=== PATIENT | female | born 1975 | race Caucasian/White ===

== ENCOUNTER 2019-07-20 00:17 | Inpatient (IN) | payer OTHER ==
[~2019-07-20] VITALS: Ht 177.8 cm; Wt 52.2 kg
--- NOTE | 2019-07-20 00:17 | NUR ---
43 Y/O FEMALE BIB AMBULANCE PRESENTS TO ED WITH C/O DIFFUSE ABD PAIN THROUGHOUT RADIATING TO LOWER BACK X2 DAYS. LAST BOWEL MOVEMENT 3-4 DAYS AGO. PT WAS DISCHARGE FROM [facility] AND ESCORTED OFF PREMESIS. PT THEN CALLED 911 AND CAME TO [facility] FOR SAME COMPLAINT. ABD SOFT, FLAT AND STATES MILD TENDERNESS. UNABLE TO GIVE URINE AT THIS TIME. BOWEL SOUNDS PRESENT X4. PT AMBULATORY FROM [facility] TO BED. SHE AMBULATED WITH STEADY GAIT. POSTURE IS STRONG AND UPRIGHT THOUGH SHE STATES 8/10 PAIN. AFEBRILE WITH VSS. LESIONS TO BILAT FOREARMS. REDNESS AND EDEMA TO LEFT FOREARM. PT STATES CHRONIC CELLULITIS. HX OF METH USE. POSITIONED IN BED FOR COMFOR TWITH HOB ELEVATED 30 DEGREES. X2 SIDE RAILS UP. PLACED ON MONITOR. PUT IN GOWN AND GIVEN BLANKETS. ER AWARE. CONTINUE TO MONITOR.
--- NOTE | 2019-07-20 00:17 | NUR ---
PT BIBA BLS. TAKEN TO BED 9
[2019-07-20 00:20] VITALS: BP 129/85
--- NOTE | 2019-07-20 00:32 | NUR ---
Dr. Hammond examining patient.
[2019-07-20] MEDS ORDERED: NACL 0.9% 500 ML IV SCH (00:37)
[2019-07-20 01:15] LABS: HEMATOCRIT 32.6 % (36-48); HEMOGLOBIN 10.5 g/dL (12.0-16.0); MEAN CORPUSCULAR HEMOGLOBIN 27 pg (27-31); MEAN CORPUSCULAR HGB CONC 32 g/dL (33-37); PLATELET COUNT (AUTO) 210 K/uL (140-450); RED BLOOD CELL COUNT(AUTO) 3.97 MIL/uL (4.20-5.40); RED CELL DISTRIBUTION WIDTH 15.1 % (11.6-13.7)
[2019-07-20] MEDS ORDERED: VANCOMYCIN 1,000 MG in DEXTROSE 5% 250 ML IV ONE (01:15)
--- NOTE | 2019-07-20 01:15 | NUR ---
PATIENT ALERT AND ORIENTED, PATIENT IS UNABLE TO PROVIDE URINE SAMPLE. DR FRANCO NOTIFIED.
[2019-07-20 01:16] LABS: WHITE BLOOD COUNT (AUTO) 38.7 K/uL (4.8-10.8)
[2019-07-20 01:18] LABS: LYMPHOCYTES % (MANUAL) 3 % (20-46); MONOCYTES % (MANUAL) 4 % (5-12)
[2019-07-20 01:19] LABS: ALBUMIN 1.5 g/dL (3.4-5.0); ANION GAP 11.9 (8-16); CARBON DIOXIDE 24.6 mmol/L (21-32); POTASSIUM 5.5 mmol/L (3.5-5.1); TOTAL BILIRUBIN 0.4 mg/dL (0.0-1.0)
[2019-07-20] MEDS ORDERED: PANTOPRAZOLE 40 MG INJ VIAL IVP ONE (01:20)
[2019-07-20 01:21] LABS: CREATININE 4.7 mg/dL (0.6-1.3)
[2019-07-20] MEDS ORDERED: SODIUM ZIRCONIUM CYCLOSILICATE 10 GM POWD.PACK PO ONE (01:30)
[2019-07-20] MEDS ORDERED: VANCOMYCIN 1,000 MG VIAL ONE (01:30)
[2019-07-20] MEDS ORDERED: DEXTROSE 50% 50 ML SYR IVP ONE (01:30)
[2019-07-20] MEDS ORDERED: INSULIN REGULAR, HUMAN 100 UNIT/ML VIAL SUBQ ONE (01:30)
--- NOTE | 2019-07-20 02:31 | NUR ---
TAKEN TO CT VIA WC.
[2019-07-20] MEDS ORDERED: ONDANSETRON 4 MG/2 ML VIAL IVP ONE (03:10)
--- NOTE | 2019-07-20 03:30 | NUR ---
PATIENT IS ALERT AND ORIENTED, STILL UNABLE TO PROVIDE URINE AND DR FRANCO IS AWARE. BREATHING EVEN AND UNLABORED, PATIENT IS CALM AND COOPERATIVE.
[2019-07-20] MEDS ORDERED: VANCOMYCIN PER PHARMACY MC PRN (04:15)
[2019-07-20] MEDS ORDERED: ONDANSETRON 4 MG/2 ML VIAL IVP PRN (04:15)
[2019-07-20] MEDS ORDERED: ACETAMINOPHEN 325 MG TAB PO PRN (04:15)
--- NOTE | 2019-07-20 05:00 | NUR ---
LEFT FOREARM ULCERATION 1.5CM X 0.5 CM X 0.3 CM DUE TO IV DRUG USE, PHOTOS TAKEN. WOUND COVERED WITH NONADHERENT DRESSING FROM PREVIOUS HOSPITAL VISIT.
[2019-07-20] MEDS ORDERED: GABA400C PO (05:22)
[2019-07-20] MEDS ORDERED: ALBU0.0912 INH (05:22)
[2019-07-20] MEDS ORDERED: ALPR1TAB2 PO (05:24)
[2019-07-20] MEDS ORDERED: DULO20EC PO (05:24)
[2019-07-20 05:30] VITALS: BP 108/72
--- NOTE | 2019-07-20 05:30 | NUR ---
Patient will be admitted to care of DR STEPHENS. Admited to MED SURG. Will go to room 120A. Belongings list completed. Report to KHADRA PITT.
--- NOTE | 2019-07-20 05:30 | NUR ---
RECEIVED BEDSIDE REPORT FROM ED RN ROHINI, FOR PT'S CONTINUITY OF CARE. PT IS AAOX4, ABLE TO AMBULATE, ON ROOM AIR, HAS RIGHT EJ 20G SALINE LOCK, DENIES ANY PAIN AT THIS TIME. VS CHECKED AND CHARTED. PT IN STABLE CONDITION. SAFETY AND SEIZURE PRECAUTIONS IN PLACE, CALL LIGHT IS WITHIN REACH, PT TEACHING GIVEN REGARDING DIET, AND DIAGNOSIS. PT VERBALIZED UNDERSTANDING. WILL ENDORSE TO AM SHIFT RN FOR PT'S CONTINUITY OF CARE.
[2019-07-20] MEDS: NACL 0.9% 1,000 ML IV SCH ×2 (05:40→18:30)
--- NOTE | 2019-07-20 06:00 | NUR ---
PT INQUIRED IF THERE ARE ANY MEDICATION ORDERED FOR PAIN. INFORMED PT THAT THERE IS ACETAMINOPHEN FOR MILD PAIN. PT REFUSED MED.
[2019-07-20] MEDS ORDERED: PIPERACILLIN/TAZOBACTAM 2.25 GM VIAL IV ONE (06:04)
--- NOTE | 2019-07-20 06:20 | NUR ---
ADMINISTERED SCHEDULED IVF AND IV ABX ORDERED. PT TEACHING GIVEN.
[2019-07-20] MEDS: PIPERACILLIN/TAZOBACTAM 2.25 GM in DEXTROSE 5% 50 ML IV SCH ×3 (06:21→20:30)
--- NOTE | 2019-07-20 07:15 | NUR ---
RECEIVED BEDSIDE REPORT FROM SWEETIE GAVIRIA. PATIENT IS IN BED, ASLEEP ABLE TO WAKE. RESPIRATION EVEN AND UNLABORED. NO S/S OF DISTRESS NOTED. IV INTACT AND PATENT TO RIGHT EJ WITH IVF NS 70ML/HR. TOLERATING WELL. DRESSING INTACT TO LEFT FOREARM. LEFT LEG RASH NOTED COVERED WITH DRY GAUZE WRAP. PT REFUSED TO REMOVE GAUZE DRESSING FOR ASSESSMENT. EDUCATED PATIENT. WILL CONT TO MONITOR. CALL LIGHT WITHIN REACH.
[2019-07-20 08:00] VITALS: BP 114/59
--- NOTE | 2019-07-20 09:30 | NUR ---
PER ZOOGLER LUCINA PATIENT REFUSED BLOOD DRAW. EDUCATED PATIENT ABOUT THE IMPORTANCE OF BLOOD DRAW.
--- NOTE | 2019-07-20 10:11 | NUR ---
PT REFUSED SKIN ASSESSMENT. EDUCATED ABOUT THE IMPORTANCE OF SKIN ASSESSMENT. WILL CONTINUE TO MONITOR. NO S/S OF DISTRESS NOTED. CALL LIGHT WITHIN REACH.
--- NOTE | 2019-07-20 11:59 | NUR ---
PATIENT IS ASLEEP, ABLE TO WAKE. DENIES ANY PAIN OR DISCOMFORT. RESPIRATION EVEN AND UNLABORED. CALL LIGHT WITHIN REACH. BED IN LOW POSITION.
--- NOTE | 2019-07-20 14:30 | NUR ---
ATTEMPTED TO ASSESS PATIENT'S SKIN. PT STILL REFUSED TO ASSESS LEFT LEG. OBSERVED EDEMA TO LEFT INNER ANKLE, WITH SLIGHT REDNESS. PATIENT STATED "IT'S BEEN SWOLLEN THERE, SO I DON'T LIKE TO PUT SOCKS ON THAT FOOT." PATIENT ABLE TO AMBULATE TO THE RESTROOM WITH STANDBY ASSIST. WILL NOTIFY DR. STEPHENS OF THE ASSESSMENT.
[2019-07-20 16:00] VITALS: BP 119/61
--- NOTE | 2019-07-20 16:00 | NUR ---
DR. STEPHENS ASSESSED PATIENT'S LEFT LEG AND LEFT ANKLE EDEMA. PER HE WILL ORDER ANTIBIOTIC.
[2019-07-20] MEDS: HYDROmorphone 1 MG/ML AMP IVP PRN ×2 (16:57→22:44)
--- NOTE | 2019-07-20 18:00 | NUR ---
PT IS SITTING UP IN BED, EATING DINNER. NO S/S OF DISTRESS NOTED.
--- NOTE | 2019-07-20 19:00 | NUR ---
PATIENT IN STABLE CONDITION. WILL ENDORSE TO NIGHT NURSE.
--- NOTE | 2019-07-20 19:25 | NUR ---
RECEIVED REPORT FORM JEWEL RN DAYSHIFT NURSE AT BEDSIDE FOR CONTINUITY OF CARE, PT IN STABLE CONDITION. PT SITTING UP IN BED NO C/O VOICED IV SITE INTACT AND RUNNING NORMAL SALINE AT 70MLS/HR. ALL FALLS PRECAUTION IN PLACE AND CALL OCHOA IN REACH.
[2019-07-20] MEDS: oxyCODONE/APAP 5/325 MG 1 TAB TAB PO PRN (20:24)
--- NOTE | 2019-07-20 21:00 | NUR ---
PT IN BED ALL FALLS AND SEIZURE PRECAUTIONS IN PLACE. V/S FOLLOWS: T 97.6 P 64 R 18/P 121/72 02 100% ON ROOM AIR. PT GIVEN ORDERED ZOSYN. R EJ IV SITE INTACT AND FLUSHED PT HAS NORMAL SALINE RUNNING AT 70MLS/HR.PT GIVEN PERCOCET FOR MODERATE PAIN IN ABDOMEN AND BACK. ALL OTHER REQUESTED NEEDS ATTENDED. BY STAFF.
--- NOTE | 2019-07-20 23:45 | NUR ---
PT IN BED, ALL FALLS AND SEIZURE PRECAUTIONS IN PLACE. PT HAD C/O OF SEVERE 8/10 ABD AND BACK PAIN, GIVEN IVP/PRN DILAUDID. V/S FOLLOWS: T 97.4 P 63 R 18 B/P 120/68 02 99% ON ROOM AIR. DRESSINGS ON ARM AND LEG CLEAN AND INTACT. ALL REQUESTED NEEDS ATTENDED AND CALL OCHOA IN REACH.
[2019-07-21] VITALS: BP 121/72
[2019-07-21] MEDS: HYDROmorphone 1 MG/ML AMP IVP PRN ×4 (03:32→20:04)
--- NOTE | 2019-07-21 03:35 | NUR ---
PT IN BED WITH C/O SEVERE ABDOMINAL AND BACK PAIN. SHE WAS GIVEN IVP/PRN DILAUDID. ALL REQUESTED NEEDS ATTENDED , FALLS AND SEIZURE PROTOCOLS IN PLACE.
[2019-07-21] MEDS: oxyCODONE/APAP 5/325 MG 1 TAB TAB PO PRN (06:56)
[2019-07-21] MEDS: PIPERACILLIN/TAZOBACTAM 2.25 GM in DEXTROSE 5% 50 ML IV SCH ×3 (07:00→20:10)
--- NOTE | 2019-07-21 07:07 | NUR ---
RECEIVED BEDSIDE REPORT FROM ANALYST NURSE. PATIENT ASLEEP IN BED UPON ARRIVAL. RESPONSIVE TO VERBAL AND TACTILE STIMULI. ABLE TO MAKE NEEDS KNOWN. NO COMPLAINTS OR CONCERNS AT THIS TIME. SKIN WARM AND DRY TO TOUCH. CELLULITIS ON LEFT FOREARM IS COVERED WITH DRESSING. DRESSING IS CLEAN, DRY, AND INTACT. IV SITE IS ON R EJ WITH A 20G. IV SITE IS CLEAN, DRY, AND INTACT WITH NO LEAKING OR INFILTRATION. RESPIRATIONS EVEN AND UNLABORED WITH NO SOB OR RESPIRATORY DISTRESS. PATIENT IS STABLE. SAFETY MEASURES: HOB ELEVATED, SEIZURE PRECAUTIONS IN PLACE, BED ALARM ACTIVATED, AND CALL LIGHT WITHIN REACH. WILL CONTINUE TO MONITOR.
[2019-07-21 08:00] VITALS: BP 143/96
--- NOTE | 2019-07-21 08:41 | NUR ---
PATIENT COMPLAINED SHE HAS 9/10 PAIN ON HER ABDOMEN, NON RADIANT, FEELS STABBING AND SHARP. REPOSITIONED PATIENT AND PAIN DOES NOT GO AWAY. MEDICATED WITH PRN PAIN MED DILAUDID VIA IVP, MED ED PROVIDED AND PATIENT VERBALIZED UNDERSTANDING. PATIENT AWAKE AND RESTING ON BED AT THIS TIME. EXPLAINED TO PATIENT URINE SAMPLE IS NEEDED AND PROVIDE SPECIMEN SAMPLE CUP AND INSTRUCTED PATIENT TO USE IT WHEN SHE HAS URINE, PATIENT VERBALIZED UNDERSTANDING. SPECIMEN COLLECT SIGN POSTED ON DOOR. NO SIGNS OF DISTRESS NOTED. SAFETY MEASURES IN PLACE. FALL RISK PROTOCOL AND SEIZURE PROTOCOL IN PLACE. BED IN LOW POSITION AND CALL LIGHT WITHIN REACH. INSTRUCTED PATIENT TO USE THE CALL LIGHT FOR ANY ASSISTANCE AND PATIENT WAS AWARE.
--- NOTE | 2019-07-21 09:01 | NUR ---
PATIENT HAS BEEN SCREENED AND CATEGORIZED HIGH NUTRITION RISK. PATIENT WILL BE SEEN WITHIN 1-2 DAYS OF ADMISSION. 07/21/[address]
--- NOTE | 2019-07-21 09:50 | NUR ---
PATIENT IS RESTING ON BED AT THIS TIME. NO SIGNS OF DISTRESS NOTED. SAFETY MEASURES IN PLACE.
--- NOTE | 2019-07-21 10:11 | NUR ---
DR GUERRERO IS ASSESSING AND TALKING TO PATIENT AT BEDSIDE. NO SIGNS OF DISTRESS NOTED.
--- NOTE | 2019-07-21 11:33 | NUR ---
WOUND CARE CONSULT NOT DONE. PT. REFUSES, RISKS AND BENEFITS EXPLAINED. PT DOES NOT WANT THE DRESSING TO BE REMOVED. Addendum: 07/21/19 at 1136 by Nicholas Stringer RN (Grace) PRIMARY RN NOTIFIED.
--- NOTE | 2019-07-21 12:10 | NUR ---
DR CAMPOS IS ASSESSING AND TALKING TO PATIENT AT BEDSIDE. NO SIGNS OF DISTRESS NOTED. SAFETY MEASURES IN PLACE.
[2019-07-21] MEDS ORDERED: VANCOMYCIN PER PHARMACY MC PRN (12:15)
[2019-07-21] MEDS: NACL 0.9% 1,000 ML IV SCH ×2 (13:20→23:25)
--- NOTE | 2019-07-21 13:20 | NUR ---
ADMINISTERED MED PER MD ORDER, PATIENT TOLERATED WELL. MED EDU PROVIDED TO PATIENT AND PATIENT VERBALIZED UNDERSTANDING. PATIENT IS RESTING ON BED AT THIS TIME. NO SIGNS OF DISTRESS NOTED. PATIENT REFUSED WOUND ASSESSMENT AND WOUND CARE. STATED "NO, I DON'T WANT TO DO IT. IT'S OK. I FEEL TIRED." WOUND CARE EDUCATION PROVIDED AND PATIENT INSISTED NOT WANTING IT. SAFETY MEASURES IN PLACE. FALL RISK PROTOCOL AND SEIZURE PROTOCOL IN PLACE. BED IN LOW POSITION AND CALL LIGHT WITHIN REACH.
--- NOTE | 2019-07-21 14:49 | NUR ---
PATIENT CALLED AND COMPLAINED OF PAIN. ADMINISTERED PRN PAIN MEDICATION PRESCRIBED PER MD ORDER. EDUCATION REGIMEN PERFORMED. PT ABLE TO VERBALIZE UNDERSTANDING AND TEACH BACK. PATIENT TOLERATED WELL.
--- NOTE | 2019-07-21 14:51 | NUR ---
DC PLANNIN YRS OLD FEMALE PT ADMITTED FROM HOME WITH A DX OF CELLULITIS AND RENAL FAILURE. PT HAS A HX OF DRUG ABUSE , ASTHMA AND SEIZURE. PT IS HOMELESS . BLOOD AND URINE CULTURE SENT TO LAB , ID AND NEPHRO CONSULT AND SURGICAL CONSULT FOR POSS DEBRIDEMENT . ADMINISTER VANCO AND ZOSYN IV , REFER TO DIRECTOR LOAN FOR HOMELESSNESS .DC PLAN FOR RESIDENTIAL OR FAMILY FOR A SAFE DISCHARGE. CM TO FOLLOW.
--- NOTE | 2019-07-21 14:53 | NUR ---
ABLE TO CONVINCE PATIENT TO DO WOUND CARE. ASSESSED L FA AND L LOWER LEG. WOUND PICTURED TAKEN. CLEANSED BOTH SITES WITH NS AND PADDED DRY. APPLIED ADAPTIC DRESSINGS. COVERED LFA WITH DRESSING AND SECURED LOW LEFT LEG WITH KERLIX. PATIENT TOLERATED WELL. WOUND EDUCATION PROVIDED TO PATIENT AND PATIENT VERBALIZED UNDERSTANDING. PATIENT AWAKE AND LOOKING AT HER PHONE. NO SIGNS OF DISTRESS NOTED. SAFETY MEASURES IN PLACE. BED IN LOW POSITION AND CALL LIGHT WITHIN REACH. INSTRUCTED PATIENT TO USE THE CALL LIGHT FOR ANY ASSISTANCE AND PATIENT WAS AWARE.
--- NOTE | 2019-07-21 15:17 | NUR ---
CALLED LAB AND SPOKE WITH JESSIE. INFORMED JESSIE THAT LAB IS NOT YET DRAM FOR DANY AND VITOR CHAPIN. PER JESSIE, SHE WILL LET THE MILLINERY TEACHER KNOW AND WILL DRAW SHORTLY.
--- NOTE | 2019-07-21 15:19 | NUR ---
[employer] Note: Basic Screen: Yes High Risk DC Screen Yes Name: N/A Home Tel: N/A Relationship: N/A Pre-Admission Living Arrangements: Other Other: HOMELESS Prior ADL Independent Current Home Health Name/Tel: N/A Current DME/02 Name/Tel: N/A Current Hospice Name/Tel: N/A Current Dialysis Name/Tel: N/A Healthcare Decision Maker: Patient Advance Directive No - REFUSED Physician Orders for Life Sustaining Treatment Form No Patient/Family Have Educational Needs No Information Taught: Advance Directive Person Taught: Patient Teaching Tools: Community Resources Verbal Factors Affecting Learning: None Participation Level: Active Evaluation: Verbalizes Understanding Needs Additional Education: No Discipline: Case Mgt/Social Svcs Tentative Discharge Plan/Destination: No Needs Identified Will require assistance post discharge: No Referred to Microsoft Windows Engineer: No Tentative Discharge Plan Summary: Patient is a 43-year-old female admitted for abdominal pain and left leg pain. Patient has PMHX of asthma and seizures. Patient is homeless. NANCI verified demographics with patient. Patient stated that she has been homeless for 1 year. SW provided homeless resources. Patient stated she would utilize phone in room to contact resources. Patient reports history of mental health with diagnoses of: manic depressive disorder, severe anxiety, and PTSD. Patient stated she has a psychiatrist at [facility]. Patient refused mental health resources when asked if she was interested in therapy. Patient reports substance abuse history of tobacco (pack a day) and history of heroine abuse. Patient's tentative plan after discharge is to find a mcc and coordinate living arrangements through resources. NANCI informed nurse to provide patient weather appropriate clothing and a meal to go. No further needs identified. Signature: DEZ Spencer Date: Jul 21, 2019 Time: 15:18
--- NOTE | 2019-07-21 15:22 | NUR ---
PATIENT RESTING IN BED WATCHING TV. ABLE TO MAKE NEEDS KNOWN. NO COMPLAINTS OR CONCERNS AT THIS TIME. SAFETY MEASURES IN PLACE. WILL CONTINUE TO MONITOR
--- NOTE | 2019-07-21 15:30 | NUR ---
PATIENT IN BED WATCHING A MOVIE ON HER PHONE. ABLE TO MAKE NEEDS KNOWN. NO COMPLAINTS OR CONCERNS AT THIS TIME. RESPIRATIONS EVEN AND UNLABORED WITH NO SOB OR RESPIRATORY DISTRESS. HOB ELEVATED, BED IN LOWEST POSITION, CALL LIGHT WITHIN REACH. WILL CONTINUE TO MONITOR.
[2019-07-21 16:00] VITALS: BP 133/76
--- NOTE | 2019-07-21 16:10 | NUR ---
07/21/19 RD INITIAL ASSESSMENT COMPLETED PLEASE REFER TO NUTRITION ASSESSMENT UNDER CARE ACTIVITY FOR ESTIMATED NUTRITIONAL NEEDS. 1. CONTINUE RENAL, 2GM NA, 2GM K DIET TOLERATED 2. PT DECLINED ENSURE AND HEALTH SHAKE FOR ADDITIONAL NUTRITION 3. MALNUTRITION EDUCATION WAS GIVEN TO PATIENT 4 . SNACKS TID WILL BE PROVIDED 5. RD TO FOLLOW-UP 3-5 DAYS, MODERATE RISK MARITZA MARTINEZ, RD
--- NOTE | 2019-07-21 16:25 | NUR ---
ASKED IF PATIENT NEEDS TO USE THE BATHROOM OR BEDPAN, PATIENT SAID "NO, I DONT NEED TO GO." EXPLAINED TO PATIENT THAT URINE SPECIMEN NEEDED. SCANNED BLADDER AND RESULTED 200 ML. PER PATIENT, SHE SAID SHE DIDNT FEEL LIKE URINE AT ALL. PAGED DR STEPHENS.
--- NOTE | 2019-07-21 16:32 | NUR ---
RECEIVED A CALL BACK FROM DR CAMPOS, INFORMED DR CAMPOS OF PATIENT'S CONDITION. RECEIVED A TORB ORDER FROM TO PREFORM A ONCE TIME STRAIGHT CATH. REPEATED AND CONFIRMED WITH DR CAMPOS. WILL INPUT ORDER.
--- NOTE | 2019-07-21 17:05 | NUR ---
PATIENT HASN'T VOIDED ANY DURING SHIFT. ORDERED A STRAIGHT CATH. STRAIGHT CATHETER RESULTED IN 300ML OF BLOOD TINGED DARK BROWN URINE. PATIENT TOLERATED FAIRLY. EDUCATED PATIENT ON STRAIGHT CATHETER REGIMEN. PT ABLE TO VERBALIZE UNDERSTANDING. PATIENT EXPLAINED THAT SHE WOULD LIKE TO GO OUTSIDE FOR A CIGARETTE. AFTER EDUCATING PATIENT ABOUT THE HOSPITAL BEING SMOKE FREE, PT BECAME AGITATED AND SAID, "I'M GOING OUT FOR A CIGARETTE WHETHER I'M DISCHARGED OR NOT. SO YOU BETTER TAKE MY IV OUT RIGHT NOW." OFFERED PATIENT A NICOTINE PATCH AND SHE STATED, "THOSE DON'T WORK, THEY MAKE IT WORSE." CALLED PROTECTIVE SIGNAL INSTALLER AND HE WILL COME TALK TO PATIENT.
--- NOTE | 2019-07-21 17:15 | NUR ---
HUMAN PERFORMANCE PROFESSOR IS TALKING TO PATIENT AND EXPLAINED TO PATIENT ABOUT THE SMOKE FREE ENVIRONMENT. PATIENT SAID SHE FEELS ANXIOUS AND NEEDS SOMETHING TO RELIEF. PAGED. DR CAMPOS.
--- NOTE | 2019-07-21 17:37 | NUR ---
RECEIVED CALL BACK FROM DR OKEEFE AND INFORMED DR THAT PATIENT IS ANXIOUS AND CRYING. PER DR OKEEFE, ORDER 0.5 MG ATIVAN IVP Q4H PRN. REPEATED AND CONFIRMED ORDER WITH DR MCALLISTER.
[2019-07-21] MEDS: LORazepam 2 MG/ML VIAL IVP PRN ×2 (17:44→23:14)
--- NOTE | 2019-07-21 17:44 | NUR ---
PATIENT CALLED AND COMPLAINED OF ANXIETY. ADMINISTERED ATIVAN PRESCRIBED PER MD ORDER. PATIENT TOLERATED WELL. EDUCATED PATIENT ON MEDICATION. PATIENT ABLE TO VERBALIZE UNDERSTANDING AND TEACH BACK. SAFETY MEASURES IN PLACE.
--- NOTE | 2019-07-21 17:50 | NUR ---
CALLED LAB AND SPOKE WITH LONI. INFORMED LONI THAT PATIENT IS READY FOR LAB DRAW. PER LONI, SHE WILL NOTIFY THE HIGH SCHOOL DRAFTING TEACHER.
--- NOTE | 2019-07-21 18:05 | NUR ---
PATIENT REFUSED LAB. EDUCATION PROVIDED AND PATIENT INSISTED NOT WANTING IT.
--- NOTE | 2019-07-21 18:30 | NUR ---
RECEIVED A CALL FROM LAB AND TOLD THAT PATIENT IS POSITIVE FOR S.AUREUS MRSA NARES Norbert AND RAlbertina INITIALED CONTACT ISOLATION AND TREATMENT PER PROTOCOL.
[2019-07-21] MEDS ORDERED: MUPIROCIN CA NASAL 2% 1GM TUBE NS SCH (18:35)
[2019-07-21] MEDS ORDERED: CHLORHEXADINE GLUC 2% CLOTH TP SCH (18:35)
--- NOTE | 2019-07-21 19:10 | NUR ---
ENDORSED TO NIGHTSHIFT AT BEDSIDE. PATIENT LYING IN BED. ABLE TO MAKE NEEDS KNOWN. NO COMPLAINTS OR CONCERNS AT THIS TIME. RESPIRATIONS EVEN AND UNLABORED WITH NO SOB OR RESPIRATORY DISTRESS. CALL LIGHT WITHIN REACH, BED IN LOWEST POSITION, AND BED ALARM ACTIVATED. PATIENT IS STABLE
--- NOTE | 2019-07-21 19:15 | NUR ---
Received endorsement from AM shift RN; patient A/Ox4, able to make needs known, Swazi speaking, on bedrest. Patient resting; introduced self, updated board. No SOB or distress noted, on room air. IV site noted on right external jugular, 20 gauge, running IVF at 70mL/hr. Skin non-intact; bandaged noted on left arm. Bed in the lowest position, call light within reach. Initial assessment done. Will continue to monitor.
[2019-07-21] MEDS: CLINDAMYCIN 600 MG in DEXTROSE 5% 50 ML IV SCH (20:06)
[2019-07-21] MEDS: LINEZOLID 600MG PREMIX 300 ML IV SCH (20:12)
--- NOTE | 2019-07-21 21:10 | NUR ---
Due meds given, tolerated well.
[2019-07-21 21:45] LABS: APPEARANCE,URINE CLOUDY (CLEAR); BILIRUBIN,URINE 2+ (NEGATIVE); BLOOD, URINE 3+ (NEGATIVE); COLOR,URINE BROWN (YELLOW); LEUKOCYTE ESTERASE ,URINE TRACE (NEGATIVE); NITRITE, URINE POSITIVE (NEGATIVE); PH,URINE 6.5 (5.0-9.0); UGLUCOSE NEGATIVE (NEGATIVE)
[2019-07-21 21:54] LABS: RBC,URINE >100 /HPF (0-5)
[2019-07-21 21:55] LABS: HYALINE CASTS, URINE 0-10 /LPF (None Seen); URINE AMORPHOUS URATE 1+ /HPF (None Seen)
[2019-07-21 22:23] LABS: BARBITURATE, URINE NEG. ng/ml (NEG <=200); BENZODIAZEPINE, URINE NEG. ng/mL (NEG <=200); CANNABINOID, URINE NEG. ng/mL (NEG <=50); COCAINE, URINE NEG. ng/mL (NEG <=300); OPIATE, URINE POS. ng/mL (NEG <=2000); PHENCYCLIDINE SCREEN,URINE NEG. ng/mL (NEG <=25)
--- NOTE | 2019-07-21 23:50 | NUR ---
Vitals taken, no distress noted. Patient asleep, eyes closed, visible chest rise and fall noted.
[2019-07-22] VITALS: BP 140/88
--- NOTE | 2019-07-22 02:01 | NUR ---
Rounds done, no SOB or distress noted.
[2019-07-22] MEDS: HYDROmorphone 1 MG/ML AMP IVP PRN ×2 (03:48→09:24)
[2019-07-22] MEDS: PIPERACILLIN/TAZOBACTAM 2.25 GM in DEXTROSE 5% 50 ML IV SCH ×2 (04:04→13:33)
[2019-07-22] MEDS: CLINDAMYCIN 600 MG in DEXTROSE 5% 50 ML IV SCH (04:04)
--- NOTE | 2019-07-22 04:20 | NUR ---
Checks made; patient resting comfortably, visible chest rise and fall noted.
[2019-07-22] MEDS: LORazepam 2 MG/ML VIAL IVP PRN (05:17)
--- NOTE | 2019-07-22 06:20 | NUR ---
Vitals stable, due meds given. Will endorse to AM shift RN for continuity of care.
--- NOTE | 2019-07-22 07:10 | NUR ---
RECEIVED BEDSIDE REPORT FROM [facility] GENERAL MANAGER NURSE FOR CONTINUITY OF CARE. PATIENT IS ASLEEP ON BED AT THIS TIME. AROUSABLE TO VOICE. RESPIRATION EVEN AND UNLABORED ON RA. NO SIGNS OF DISTRESS NOTED. IV ON REJ 20G, CLEAN AND INTACT, INFUSING PER MD ORDER. PATIENT IS CONTINENT AND ABLE TO MAKE NEEDS KNOWN. PATIENT IS ABLE TO AMBULATE WITH ASSIST DUE TO WEAKNESS. WOUNDS ON LFA AND L LOWER LEG NOTED, DRESSING CLEAN AND DRY. CONTACT PRECAUTION IN PLACE AND SIGN POSTED BY DOOR. SAFETY MEASURES IN PLACE. BED IN LOW POSITION AND CALL LIGHT WITHIN REACH. FALL RISK PROTOCOL IN PLACE AND BED ALARM ACTIVATED.
[2019-07-22 08:00] VITALS: BP 110/74
[2019-07-22] MEDS ORDERED: ENOXAPARIN 30 MG/0.3 ML SYR SUBQ SCH (09:00)
[2019-07-22] MEDS: LINEZOLID 600MG PREMIX 300 ML IV SCH (09:23)
--- NOTE | 2019-07-22 09:24 | NUR ---
ADMINISTERED AM SCHEDULED MEDS PER MD ORDER, MEDS ED PROVIDED TO PATIENT AND PATIENT SAID OK, PATIENT TOLERATED SUBQ WELL. PATIENT ALSO COMPLAINED SHE HAS 9/10 BACK PAIN, REPOSITIONED PATIENT AND PATIENT SAID "THE PAIN WON'T GO AWAY. GIVE ME SOMETHING FOR PAIN." ADMINISTERED PRN DILAUDID VIA IVP, MED ED PROVIDED TO PATIENT AND PATIENT VERBALIZED UNDERSTANDING. PATIENT AWAKE AND WATCHING TV ON BED AT THIS TIME. NO SIGNS OF DISTRESS NOTED. EXPLAINED TO PATENT THAT WOUND CULTURE NEEDED, PATIENT SAID "COME BACK LATER! I CANNOT DO IT NOW." SAFETY MEASURES IN PLACE. SEIZURE PRECAUTION AND FALL RISK PROTOCOL IN PLACE. BED IN LOW POSITION AND CALL IGHT WITHIN REACH. BED ALARM ACTIVATED. INSTRUCTED PATIENT TO USE THE CALL LIGHT FOR ANY ASSISTANCE AND PATIENT WAS AWARE.
--- NOTE | 2019-07-22 10:38 | NUR ---
TALKED TO PATIENT ABOUT BLOOD DRAW WITH RADIOTELEGRAPH OPERATOR SERVICER. PATIENT WAS NOT COOPERATIVE AND REFUSED. EDUCATION PROVIDED TO PATIENT. PATIENT STILL NOT COOPERATIVE. NOTIFIED DR CAMPOS THAT PATIENT REFUSED BLOOD DRAW SEVERAL TIMES.
--- NOTE | 2019-07-22 11:05 | NUR ---
DR GRANT AND DR GUERRERO ARE TALKING TO PATIENT AT BEDSIDE. DR GRANT EXPLAINED TO PATIENT THAT BLOOD LAB IS NEEDED IN ORDER FOR PATIENT TO GET TREATMENT FOR VANCO. PATIENT WAS AWARE. NO SIGNS OF DISTRESS NOTED. SAFETY MEASURES IN PLACE.
--- NOTE | 2019-07-22 11:50 | NUR ---
SMELLED CIGARETTE FROM PATIENT'S ROOM. WENT TO CHECK AND FOUND PATIENT HOLDING HER CIGARETTE. EDUCATED PATIENT THIS IS A SMOKE FREE HOSPITAL AND DUE TO SAFETY, NO SMOKING ALLOWED. ASKED TO TAKE CIGARETTE AWAY TO KEEP WITH SECURITY. EXPLAINED TO PATIENT, ALL WILL RETURN TO HER ONCE SHE RELEASES FROM HOSPITAL. PATIENT REFUSED. INFORMED VICE PROVOST, AND VICE PROVOST ALSO SPOKE TO PATIENT. PATIENT ALSO REFUSED AND UNCOOPERATIVE. PATIENT SAID "UNHOOK ME NOW. I AM LEAVING." PAGED DR CAMPOS.
--- NOTE | 2019-07-22 12:05 | NUR ---
SECURITY MARIE IS TALKING TO PATIENT AT BEDSIDE. SAFETY MEASURES IN PLACE.
--- NOTE | 2019-07-22 13:05 | NUR ---
PATIENT CHANGED HER MIND AND ALLOW SECURITY TO KEEP HER CIGARETTES. PATIENT SAID "I WILL STAY FOR NOW." PATIENT DOES NOT WANT TO TAKE OFF THE LISA AND WEAR THE YELLOW GOWN ON TOP. PATIENT IS RESTING ON BED AT THIS TIME. NO SIGNS OF DISTRESS NOTED. SAFETY MEASURES IN PLACE.
[2019-07-22] MEDS: oxyCODONE/APAP 5/325 MG 1 TAB TAB PO PRN (13:33)
--- NOTE | 2019-07-22 13:33 | NUR ---
PATIENT CALLED AND COMPLAINED OF 5/10 PAIN. PRN PAIN MEDICATION ADMINISTERED PER MD ORDER. TOLERATED WELL. EDUCATED PATIENT ON MEDICATION REGIMEN. PT UNDERSTANDS AND WAS ABLE TO VERBALIZE UNDERSTANDING. WOUND CARE ASSESSMENT PERFORMED WITH KILN REMOVER AT BEDSIDE. WOUND CARE WAS PERFORMED ON BOTH HER RIGHT LEFT AND HER LEFT ARM. PATIENT TOLERATED WELL. WOUND CULTURE WAS GATHERED WELL AND SENT TO THE LAB. PATIENT RESTING IN BED. RESPIRATIONS EVEN AND UNLABORED WITH NO SOB OR RESPIRATORY DISTRESS. SAFETY MEASURES: HOB ELEVATED, BED IN LOWEST POSITION, BED ALARM ACTIVATED. WILL CONTINUE TO MONITOR
--- NOTE | 2019-07-22 14:15 | NUR ---
PATIENT ASLEEP IN BED. RESPONSIVE TO VERBAL AND TACTILE STIMULI. RESPIRATIONS EVEN AND UNLABORED WITH NO SOB OR RESPIRATORY DISTRESS. SAFETY MEASURES IN PLACE. WILL CONTINUE TO MONITOR.
--- NOTE | 2019-07-22 15:30 | NUR ---
PATIENT RESTING IN BED. ABLE TO MAKE NEEDS KNOWN. SKIN WARM AND DRY TO TOUCH. RESPIRATIONS EVEN AND UNLABORED WITH NO SOB OR RESPIRATORY DISTRESS. NO CONCERNS OR COMPLAINTS AT THIS TIME. SAFETY MEASURES: HOB ELEVATED, BED IN LOWEST POSITION, AND CALL LIGHT WITHIN REACH. WILL CONTINUE TO MONITOR.
[2019-07-22 16:00] VITALS: BP 145/90
--- NOTE | 2019-07-22 16:18 | NUR ---
PCP Appointment: NANCI contacted Vi from Dr. [facility] office [phone] to schedule hospital follow up for patient. NANCI scheduled appointment for 2:30PM on 07/30/2019 @ [address] [place] [address]. NANCI left appointment slip in patients chart to be given at discharge. No further needs identified.
--- NOTE | 2019-07-22 16:43 | NUR ---
ANSWERED PATIENT'S CALL LIGHT. PER PATIENT, " I REALLY WANT TO GO OUT NOW. I NEED TO SMOKE. I WILL DO WHATEVER I WANT OUT THERE." EXPLAINED TO PATIENT THAT WE ARE SMOKE FREE ENVIRONMENT AND APOLOGIZED TO PATIENT THAT WE CANNOT ACCOMMODATE AND ALSO FOR THE HEALTH OF PATIENT. EXPLAINED TO PATIENT THAT SHE IS NOT MEDICALLY CLEAR BY DR AND IT'S UNSAFE FOR PATIENT TO LEAVE. PATIENT SAID "I HAVE THE RIGHT TO LEAVE. YOU GUYS CANNOT KEEP ME HERE." SHUTTLE REPAIRER NOTIFIED AND FUDGE CANDY MAKER NOTIFIED. PREPARED AMA DOCUMENT. DR CAMPOS WAS AWARE THAT PATIENT IS GOING TO AMA. CALLED SECURITY TO RETURN PATIENT'S CIGARETTES.
--- NOTE | 2019-07-22 16:48 | NUR ---
PATIENT IS CHANGING INTO STREET CLOTHES AT THIS TIME. AWAITING FOR SECURITY TO RETURN PATIENT'S CIGARETTES. NO SIGNS OF DISTRESS NOTED.
--- NOTE | 2019-07-22 17:04 | NUR ---
SECURITY PROVIDED PANT AND SHOES TO PATIENT. RETURNED PATIENT'S CIGARETTES. PROVIDED BROWN BAG. PATIENT SIGNED AMA PAPER AND DIDN'T DISCLOSE WHERE IS SHE GOING TO STAY. DC IV AND CANNULA INTACT, NO BLEEDING AT IV SITE. REMOVED ALL ARM BANDS. PATIENT WENT AMA AT THIS TIME.
== END 2019-07-22 17:05 | disposition left against medical advice (07) | DRG 720 ==
LOC: MED 00:17 → MTU 04:20
PROVIDERS: ADMIT Internal Medicine Pulmonary Disease; ATTEND Internal Medicine Pulmonary Disease
DX: A41.9 Sepsis, unspecified organism (principal); E43 Unspecified severe protein-calorie malnutrition; N17.9 Acute kidney failure, unspecified; J45.909 Unspecified asthma, uncomplicated; L03.115 Cellulitis of right lower limb; L03.116 Cellulitis of left lower limb; F17.200 Nicotine dependence, unspecified, uncomplicated; N18.9 Chronic kidney disease, unspecified; N39.0 Urinary tract infection, site not specified; E87.5 Hyperkalemia; F19.10 Other psychoactive substance abuse, uncomplicated; Z68.1 Body mass index [BMI] 19.9 or less, adult; Z59.0 Homelessness; Z88.8 Allergy status to other drugs, medicaments and biological substances; Z79.899 Other long term (current) drug therapy; Z98.891 History of uterine scar from previous surgery; Z90.49 Acquired absence of other specified parts of digestive tract
CPT/HCPCS: 36415; 71045; 76770; 80053; 80305; 81001; 82043; 82570; 85025; 87040; 87070; 87075; 87081; 87086; 87186; 93005; 96361; 96365; 96366; 96372; 96375; 99291; C1758; C9113; J1170; J1650; J1815; J2020; J2060; J2405; J2543; J3370; J3490; J7030; J7060; Q0092